=== PATIENT | female | born 1975 | race Caucasian/White ===

== ENCOUNTER 2022-08-07 22:38 | Emergency (ER) | payer BC ==
[~2022-08-07] VITALS: Ht 167.6 cm; Wt 93.0 kg
[2022-08-07] MEDS ORDERED: HYDROCODON-ACE1 EA10 PO (23:48)
== END 2022-08-08 00:06 | disposition home or self-care (01) ==
LOC: ED 22:38
DX: H60.91 Unspecified otitis externa, right ear (principal)
CPT/HCPCS: 99282; A9270